=== PATIENT | male | born 2000 | race Caucasian/White ===

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

== ENCOUNTER 2021-12-18 18:38 | Emergency (ER) | payer OTHER ==
[~2021-12-18] VITALS: Ht 175.3 cm; Wt 66.6 kg
[~2021-12-18 18:38] MED LIST: IBUP600T16 PO
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
[2021-12-18] MEDS ORDERED: ACETAMINOPHEN 500 MG TABLET PO ONE (19:15)
[2021-12-18] MEDS ORDERED: PROCHLORPERAZINE 10 MG/2 ML VIAL. IM ONE (19:15)
[2021-12-18] MEDS ORDERED: diphenhydrAMINE HCL 25 MG CAPSULE PO ONE (19:15)
[2021-12-18] MEDS ORDERED: KETOROLAC 60 MG/2 ML VIAL. IM ONE (19:15)
[2021-12-18 20:02] VITALS: BP 119/87
== END 2021-12-18 20:02 | disposition home or self-care (01) ==
LOC: ER 18:38
DX: R51.9 Headache, unspecified (principal); Z91.041 Radiographic dye allergy status
CPT/HCPCS: 96372; 99284; J0780; J1885; Q0163